=== PATIENT | female | born 1975 | race Caucasian/White ===

== ENCOUNTER 2017-04-08 14:45 | Emergency (ER) | payer OTHER ==
[2017-04-08 14:56] VITALS: BMI 21.9
[2017-04-08] MEDS ORDERED: ALBUTEROL SO4 0.083% IH SOL 2.5 MG/3 ML VIAL.NEB. NEB ONE (15:42)
[2017-04-08] MEDS ORDERED: IPRATROPIUM BR 0.02% 0.5 MG/2.5 ML VIAL.NEB. NEB ONE (15:42)
[2017-04-08] MEDS ORDERED: predniSONE 20 MG TABLET (UD) PO ONE (15:42)
--- NOTE | 2017-04-08 15:53 | PDOC ---
History of Present Illness - General Chief Complaint: Pain Stated Complaint: epigastric ABD PAIN Time Seen by Provider: 04/08/17 15:38 History Source: Patient Exam Limitations: No Limitations - History of Present Illness Initial Comments: This is a 41 yo female with h/o GERD, x3, and right inguinal herniorrhaphy who presents c/o 8/10 non-radiating burning epigastric pain worsening for the past 3 days. She took Tums for the symptoms last night with partial relief. She notes feeling like there is a small ball in her upper stomach (points just inferior and deep to the xyphoid process). She additionally has had nausea and decreased appetite, but no vomiting, diarrhea, constipation, black or bloody stool, vaginal bleeding or discharge, headache, dizziness, fever, chills, or other symptoms. Her last menstrual period was 2-3 weeks ago and she doesn't believe that she may be . She has previously had similar pain (most recently a year ago) and was worked up by gastoenterology for chronic stomach pain, nausea, and malnutrition. Past History - Past Medical History Allergies/Adverse Reactions: Allergies Allergy/AdvReac Type Severity Reaction Status Date / Time No Known Allergies Allergy Verified 04/08/17 14:51 Home Medications: Ambulatory Orders Omeprazole 20 mg PO DAILY 04/07/16 Ondansetron [Zofran Odt -] 4 mg SL BID #14 od.tablet 04/08/17 Pantoprazole Sodium [Protonix] 40 mg PO DAILY #20 tablet. 04/08/17 Anemia: No Asthma: No Cancer: No Cardiac Disorders: No CVA: No COPD: No CHF: No Dementia: No Diabetes: No GI Disorders: No Disorders: No HTN: No Hypercholesterolemia: No Liver Disease: No Suicide Attempt (Hx): No Seizures: No Thyroid Disease: No - Surgical History Abdominal Surgery: Yes (rt ing HERNIA) Appendectomy: No Cardiac Surgery: No Cholecystectomy: No Lung Surgery: No Neurologic Surgery: No Orthopedic Surgery: No - Reproductive History (#): 4 Para: 3 Spontaneous : 1 - Immunization History Immunization Up to Date: No - Psycho/Social/Smoking Cessation Hx Anxiety: Yes Suicidal Ideation: No Smoking Status: No Smoking History: Never smoked Have you smoked in the past 12 months: No Number of Cigarettes Smoked Daily: 0 Information on smoking cessation initiated: No Hx Alcohol Use: No Drug/Substance Use Hx: No Substance Use Type: None Hx Substance Use Treatment: No Review of Systems - Review of Systems Able to Perform ROS?: Yes Constitutional: Yes: Loss of Appetite. No: Chills, Fever, Unexplained wgt Loss HEENTM: No: Nose Congestion, Throat Pain Respiratory: No: Cough, Shortness of Breath Cardiac (ROS): No: Chest Pain, Palpitations ABD/GI: Yes: Nausea, Other (upper abdominal pain). No: Constipated, Diarrhea, Rectal Bleeding, Vomiting : No: Burning, Dysuria, Discharge, Flank Pain, Hematuria Musculoskeletal: No: Back Pain, Neck Pain Integumentary: No: Bruising, Rash Neurological: No: Headache, Numbness, Tingling, Weakness, Dizziness Endocrine: No: Unexplained Weight Gain, Unexplained Weight Loss *Physical Exam - Vital Signs Last Vital Signs Temp Pulse Resp BP Pulse Ox 98.0 F 86 18 118/91 100 04/08/17 14:52 04/08/17 14:52 04/08/17 14:52 04/08/17 14:52 04/08/17 14:52 - Physical Exam General Appearance: Yes: Nourished, Appropriately Dressed, Thin, Other (laying in hospital bed with light out with student success coach at bedside, appears mildly uncomfortable, answering questions appropriately, [place]an-speaking only). No: Apparent Distress HEENT: positive: EOMI, Normal Voice, Hearing Grossly Normal. negative: Scleral Icterus (R), Scleral Icterus (L), Nasal Congestion Neck: positive: Trachea midline, Supple. negative: Tender, Rigid Respiratory/Chest: positive: Lungs Clear, Normal Breath Sounds. negative: Respiratory Distress, Crackles, Rhonchi, Stridor, Wheezing Cardiovascular: positive: Regular Rhythm, Regular Rate. negative: Murmur Gastrointestinal/Abdominal: positive: Normal Bowel Sounds, Tender (mild suprapubic and mild epigastric tenderness to palpation, no lumps felt in the area where the patient points in the epigastrium, normoactive bowel sounds), Soft. negative: Organomegaly, Pulsatile Mass, Guarding Musculoskeletal: positive: Normal Inspection. negative: CVA Tenderness, Decreased Range of Motion, Vertebral Tenderness Extremity: positive: Normal Capillary Refill, Normal Inspection, Normal Range of Motion. negative: Tender, Cyanosis Integumentary: positive: Normal Color, Dry, Warm. 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 A 0.4 cm polyp is noted along the posterior gallbladder wall. The remainder of the gallbladder demonstrates no discrete abnormality. No pericholecystic fluid is seen. The common bile duct diameter appears within normal limits measuring 0.4 cm. No gross intraductal calculus is identified. The liver, spleen, kidneys and partially visualized pancreas demonstrate no sonographic abnormality. No free intraperitoneal fluid is noted. The infrarenal aorta is partially obscured due to overlapping bowel gas. No obvious aortic aneurysm is seen. Impression: No sonographic evidence of acute pathology is identified. There is no evidence of cholelithiasis. A 0.4 cm gallbladder polyp is noted which was not definitely present at the time of a previous ultrasound study of 07/11/2013. Correlation with 3 month follow-up sonography is suggested to evaluate stability. No biliary tract dilatation is seen. Reported By: Adolfo Lucero MD 04/08/17 4315 Medical Decision Making - Medical Decision Making 41 yof with vague prior GI issues p/w epigastric burning pain and mild suprapubic pain, nausea. On exam she is thin, a bit pale, mild epigastric and suprapubic ttp. DDX: GERD, PUD, pancreatitis, renal stone, UTI +- pyelonephritis Ordered is CBCD, CMP, Mg, Phos, lipase, UA with cx, NS, Maalox, and Pepcid. 04/08/17 17:46 Patient is female, [age], fertile, but no overweight; will order RUQ ultrasound r/o cholecystitis. CBCD, CMP, lipase, UA negative. 04/08/17 19:36 US limited shows no e/o cholecystitis, hydronephrosis, or other obvious cause for the patient's pain. Her pain has essentially resolved with medications given in the ED. She is appropriate for OP management (states has current GI doctor). She will make an appointment with GI tomorrow morning. Rx sent for Protonix and Zofran. *DC/Admit/Observation/Transfer Diagnosis at time of Disposition: Abdominal pain Qualifiers: Abdominal location: epigastric Qualified Code(s): R10.13 - Epigastric pain - Discharge Dispostion Disposition: HOME Condition at time of disposition: Stable Admit: No - Prescriptions Prescriptions: Pantoprazole Sodium [Protonix] 40 mg PO DAILY #20 tablet. Ondansetron [Zofran Odt -] 4 mg SL BID #14 od.tablet - Referrals Referrals: Lenora Avila MD [Primary Care Provider] - - Patient Instructions Additional Instructions: You were seen today in the ED for abdominal pain. We did blood work and a urine analysis which were normal. We also did an ultrasound of your gallbladder and abdomen, which did not show any obvious cause for the pain. Please follow up with your regular quality compliance manager as soon as possible. Call them tomorrow morning to make an appointment. Take the Protonix as scheduled, and please take the Zofran ODT only as you need it for nausea according to the label instructions. (The Zofran or ondansetron is a pill that you need to dissolve under your tongue without swallowing it like a normal pill.) Return to the ED for any new or worsening symptoms like worsened pain, bloody or black diarrhea, fever, or other symptoms.
[2017-04-08] MEDS ORDERED: FAMOTIDINE 20 MG/50 ML IVPB 50 ML IVPB ONE ×2 (16:05→16:29)
[2017-04-08] MEDS ORDERED: MAG HYDROX/AL HYDROX/SIMETH 30 ML UNIT-DOSE CUP PO ONE (16:05)
[2017-04-08] MEDS ORDERED: SODIUM CHLORIDE 1,000 ML IV STA (16:06)
[2017-04-08] MEDS ORDERED: MAG HYDROX/AL HYDROX/SIMETH 30 ML UNIT-DOSE CUP ONE (16:28)
[2017-04-08 16:31] LABS: BASOPHIL 0.6 % (0-2.0); EOSINOPHIL 0.3 % (0-4.5); MCH 31.2 pg (25.7-33.7); MCHC 34.5 g/dl (32.0-36.0); MEAN CELL VOLUME 90.4 fl (80-96); MEAN PLT VOLUME 8.2 fl (7.5-11.1); PLATELET COUNT 254 K/MM3 (134-434); WHITE BLOOD COUNT 9.5 K/mm3 (4.0-10.0)
[2017-04-08 16:42] LABS: URINE APPEARANCE CLEAR; URINE BILIRUBIN NEGATIVE (NEGATIVE); URINE BLOOD NEGATIVE (NEGATIVE); URINE COLOR LTYELLOW; URINE GLUCOSE (UA) NEGATIVE (NEGATIVE); URINE KETONE NEGATIVE (NEGATIVE); URINE NITRITE NEGATIVE (NEGATIVE); URINE PROTEIN NEGATIVE (NEGATIVE); URINE UROBILINOGEN NEGATIVE mg/dL (0.2-1.0)
[2017-04-08 17:02] LABS: ALBUMIN 3.8 g/dl (3.4-5.0); ANION GAP 8 (8-16); BILIRUBIN,TOTAL 0.4 mg/dL (0.2-1.0); CO2 28 mmol/L (21-32); CREATININE 0.4 mg/dL (0.55-1.02); GLUCOSE,RANDOM 98 mg/dL (74-106); MAGNESIUM 2.3 mg/dL (1.8-2.4); PHOSPHOROUS 3.8 mg/dL (2.5-4.9); SGOT/AST 14 U/L (15-37); SGPT/ALT 17 U/L (12-78); TOT PROT 7.4 g/dl (6.4-8.2)
[2017-04-08 17:03] LABS: ALK PHOS 72 U/L (45-117)
--- NOTE | 2017-04-08 19:04 | PDOC ---
Attending Attestation - Resident Resident Name: MarthaAry - ED Attending Attestation I have performed the following: I have examined & evaluated the patient, The case was reviewed & discussed with the resident, I agree w/resident's findings & plan, Exceptions are as noted - HPI HPI: 04/08/17 19:02 41 yo p/w epigsatric pain.Nausea but no active vomiting and no fever. Has been seen by Dr Watkins in past years for gastroparesis - Physicial Exam PE: 04/08/17 19:28 Slender 41-year-old female presents with epigastric pain HEENT within normal limits. Neck supple Lungs clear to auscultation bilaterally CVS regular rate and rhythm S1, S2 Abdomen there is mild epigastric tenderness, no guarding, no rebound Neuro alert, oriented 3, ambulatory, no gross focal neural deficits - Medical Decision Making 04/08/17 19:30 Ultrasound of the patient's abdomen does not show any evidence of cholecystitis. She does not have a fever. Labs reviewed, and there is no significant abnormalities. Patient has a history of gastroparesis, chronic abdominal pain and will follow- up with her drapery cutter
[2017-04-08 20:32] VITALS: BP 118/84; PULSE 84; TEMP 98.4
== END 2017-04-08 20:32 | disposition home or self-care (01) ==
LOC: JER 14:45
PROC: 3E033GC Introduction of Other Therapeutic Substance into Peripheral Vein, Percutaneous Approach (ICD-10-PCS; principal; 2017-04-08)
DX: R10.13 Epigastric pain (principal)
CPT/HCPCS: 36415; 76700-TC; 80053; 81003; 83690; 83735; 84100; 84703; 85025; 87086; 96365; 99282-25

== ENCOUNTER 2017-08-23 12:15 | Emergency (ER) | payer OTHER ==
[2017-08-23 12:27] VITALS: BP 116/75; PULSE 127; TEMP 99.2; BMI 20.7
[2017-08-23] MEDS ORDERED: ACETAMINOPHEN 325 MG TABLET (FP) PO ONE (13:01)
[2017-08-23] MEDS ORDERED: SODIUM CHLORIDE 1,000 ML IV STA (13:01)
--- NOTE | 2017-08-23 13:02 | PDOC ---
History of Present Illness - General Chief Complaint: Respiratory Stated Complaint: FEVER History Source: Patient Exam Limitations: No Limitations - History of Present Illness Initial Comments: 08/23/17 13:37 This 41-year-old female presents here to the emergency room with the complaint of a cough, fever, chills. She was seen by her doctor yesterday and found to be with positive flu, positive bronchitis. She was placed on the following medications by her doctor, Tamiflu, prednisone, Zofran, Zithromax, cough suppressant. She stated she started taking it yesterday and again this morning however she still feels extremely dehydrated. She is unable to take any fluids in. She has not eaten anything either. Her son is with her translating. At this time she has no fever. NKA No past medical history, social habits, or past surgical history Past History - Past Medical History Allergies/Adverse Reactions: Allergies Allergy/AdvReac Type Severity Reaction Status Date / Time No Known Allergies Allergy Verified 08/23/17 12:26 Anemia: No Asthma: No Cancer: No Cardiac Disorders: No CVA: No COPD: No CHF: No Dementia: No Diabetes: No GI Disorders: No Disorders: No HTN: No Hypercholesterolemia: No Liver Disease: No Seizures: No Thyroid Disease: No - Surgical History Abdominal Surgery: Yes (rt ing HERNIA) Appendectomy: No Cardiac Surgery: No Cholecystectomy: No Lung Surgery: No Neurologic Surgery: No Orthopedic Surgery: No - Reproductive History (#): 4 Para: 3 Spontaneous : 1 - Immunization History Immunization Up to Date: No - Suicide/Smoking/Psychosocial Hx Smoking Status: No Smoking History: Never smoked Have you smoked in the past 12 months: No Number of Cigarettes Smoked Daily: 0 Hx Alcohol Use: No Drug/Substance Use Hx: No Substance Use Type: None Hx Substance Use Treatment: No Review of Systems - Review of Systems Able to Perform ROS?: Yes Comments:: 08/23/17 13:39 General statement: Does not feel well Hematology: neg history of bleeding/blood thinners Skin: Neg for lesions, rash, bruising. HEENT: Neg symptoms other than nasal congestion Respiratory: Neg SOB or difficulty in breathing positive cough with pain to the chest when coughing Cardiac: Neg chest pain GI: Neg pain, n/v : Neg problems on voiding MS: Neg for joint pain/stiffness, no edema Neuro: Neg for LOC, weakness, Endocrine: Neg for excess thirst/hunger, cold/heat intolerance, excess sweating Allergies: Neg for allergies *Physical Exam - Vital Signs Last Vital Signs Temp Pulse Resp BP Pulse Ox 99.2 F 127 H 20 116/75 99 08/23/17 12:24 08/23/17 12:24 08/23/17 12:24 08/23/17 12:24 08/23/17 12:24 - Physical Exam Comments: 08/23/17 13:39 General Appearance: This ill-appearing female V/S: hemodynamically stable, afebrile Skin: WNL of pt's skin color, no signs of pallor, mottling, cyanosis Head:symmetrical Eyes: EOM's intact, PERRLA Ears: denies pain Nose: patent with some turbinate congestion Throat: lips, teeth, gums, tongue, buccal mucos pink and moist Lungs: Chest symmetry equal. Cap refill <3 seconds. Lung sounds diminished at bases but clear throughout Cardiac: PMI at R 4MCL space, pos S1 and S2, regular rate. Abdomen: Soft, round, nontender : Not observed Muscularskeletal: Gait steady, ambulated in to ER, no edema +PMS Neuro: AAOx3, cognitively intact, speech clear and appropriate. Medical Decision Making - Medical Decision Making 08/23/17 13:40 Patient initially was seen and examined with son present. Patient has received all of medications that I can offer for her with her complaints and was only seen yesterday by her primary physician. At this time I'm offering her a bag of IV fluids for hydration as well as some Tylenol for body aches. She is receiving this without any complaints. 08/23/17 14:14 Patient is rehydrated and now being discharged to home to complete her antibiotics. *DC/Admit/Observation/Transfer Diagnosis at time of Disposition: Influenza, Dehydration - Discharge Dispostion Disposition: HOME Condition at time of disposition: Stable Admit: No - Referrals Referrals: Ana Bauer [Primary Care Provider] - - Patient Instructions Printed Discharge Instructions: DI for Dehydration -- Adult Additional Instructions: Discharge instructions 1. Please follow up with your primary physician within the next few days and explain that you have been seen here in the Emergency Room or dehydration. 2. If you experience any worsening of symptoms, please return to the ER 3. Rest 4. Drink plenty of water and other fluids 5. Complete all of the medications you received by your MD as prescribed - Post Discharge Activity
[2017-08-23] MEDS ORDERED: ACETAMINOPHEN 325 MG TABLET (FP) ONE (13:11)
== END 2017-08-23 14:20 | disposition home or self-care (01) ==
LOC: JERFT 12:15
PROC: 3E0337Z Introduction of Electrolytic and Water Balance Substance into Peripheral Vein, Percutaneous Approach (ICD-10-PCS; principal; 2017-08-23)
DX: J10.1 Influenza due to other identified influenza virus with other respiratory manifestations (principal); E86.0 Dehydration
CPT/HCPCS: 96360; 99281-25

== ENCOUNTER 2019-05-07 19:40 | Emergency (ER) | payer OTHER ==
--- NOTE | 2019-05-07 20:06 | PDOC ---
Rapid Medical Evaluation Chief Complaint: Pain Time Seen by Provider: 05/07/19 20:05 Medical Evaluation: Allergies Allergy/AdvReac Type Severity Reaction Status Date / Time No Known Allergies Allergy Verified 05/07/19 20:04 05/07/19 20:05 Pt c/o: urinary s/s , no recent uti, no discharge, no dm Pt on brief exam: vss Pt ordered for: ua, ucx, uhcg Pt to proceed to the ED Discharge Disposition - Diagnosis Urinary pain - Referrals - Patient Instructions - Post Discharge Activity
[2019-05-07 20:07] VITALS: BP 124/64; PULSE 75; TEMP 98.2; BMI 21.9
[2019-05-07 22:33] LABS: PH,URINE 5.5 (5.0-8.0); URINE APPEARANCE CLOUDY; URINE BILIRUBIN NEGATIVE (NEGATIVE); URINE COLOR YELLOW; URINE GLUCOSE (UA) NEGATIVE (NEGATIVE); URINE KETONE NEGATIVE (NEGATIVE); URINE LEUK ESTERASE NEGATIVE (NEGATIVE); URINE NITRITE NEGATIVE (NEGATIVE); URINE PROTEIN NEGATIVE (NEGATIVE); URINE UROBILINOGEN 0.2 mg/dL (0.2-1.0)
--- NOTE | 2019-05-07 23:38 | PDOC ---
History of Present Illness - General Chief Complaint: Pain Stated Complaint: PAIN Time Seen by Provider: 05/07/19 20:05 - History of Present Illness Initial Comments: The pt is a 43F w/ a no reported PMH who presents for evaluation of 3 days of RLQ/suprapubic abdominal pain that is achy, waxing/waning, associated with urinary frequency and discomfort as well as nausea, and not alleviated by anything she can identify. She denies fevers/chills, chest pain, trouble breathing, diarrhea, blood in her urine or stool, or changes in sensation. She has not tried taking anything for her pain. 05/08/19 00:30 Past History - Past Medical History Allergies/Adverse Reactions: Allergies Allergy/AdvReac Type Severity Reaction Status Date / Time No Known Allergies Allergy Verified 05/07/19 20:04 Home Medications: Ambulatory Orders NK [No Known Home Medication] 05/07/19 Anemia: No Asthma: No Cancer: No Cardiac Disorders: No CVA: No COPD: No CHF: No Dementia: No Diabetes: No GI Disorders: No Disorders: No HTN: No Hypercholesterolemia: No Liver Disease: No Seizures: No Thyroid Disease: No - Surgical History Abdominal Surgery: Yes (rt ing HERNIA) Appendectomy: No Cardiac Surgery: No Cholecystectomy: No Lung Surgery: No Neurologic Surgery: No Orthopedic Surgery: No - Reproductive History (#): 4 Para: 3 Spontaneous : 1 - Immunization History Immunization Up to Date: No - Psycho Social/Smoking Cessation Hx Smoking Status: No Smoking History: Never smoked Have you smoked in the past 12 months: No Number of Cigarettes Smoked Daily: 0 Information on smoking cessation initiated: No Hx Alcohol Use: No Drug/Substance Use Hx: No Substance Use Type: None Hx Substance Use Treatment: No Review of Systems - Review of Systems Able to Perform ROS?: Yes Comments:: GENERAL/CONSTITUTIONAL: No fever or chills. No weakness HEAD, EYES, EARS, NOSE AND THROAT: No change in vision. No change in hearing. No sore throat CARDIOVASCULAR: No chest pain or shortness of breath RESPIRATORY: Denies cough, hemoptysis GASTROINTESTINAL: No nausea, vomiting, diarrhea or constipation GENITOURINARY: +dysuria/frequency MUSCULOSKELETAL: No joint or muscle swelling or pain. No neck or back pain SKIN: No rash NEUROLOGIC: No headache, vertigo, loss of consciousness, or change in strength/ sensation ENDOCRINE: No increased thirst. No abnormal weight change HEMATOLOGIC/LYMPHATIC: No anemia, easy bleeding, or history of blood clots ALLERGIC/IMMUNOLOGIC: No hives or skin allergy 05/07/19 23:33 Is the patient limited Welsh proficient: No *Physical Exam - Vital Signs Last Vital Signs Temp Pulse Resp BP Pulse Ox 98.2 F 75 17 124/64 99 05/07/19 20:04 05/07/19 20:04 05/07/19 20:04 05/07/19 20:04 05/07/19 20:04 - Physical Exam Comments: GENERAL: Awake, alert, and oriented to person/place/time, in no acute distress HEAD: No signs of trauma, normocephalic, atraumatic EYES: PERRLA, EOMI, sclera anicteric, conjunctiva clear ENT: Hearing grossly normal, nares patent, oropharynx clear without exudates. Moist mucosa LUNGS: No distress, speaks in full sentences, clear to auscultation bilaterally HEART: Regular rate and rhythm, normal S1 and S2, no murmurs appreciated, peripheral pulses normal and equal bilaterally ABDOMEN: Soft, RLQ/R inguinal TTP w/o rebound or guarding, normoactive bowel sounds PELVIC: normal white vaginal discharge, no blood, no CMT, R adenexal tenderness w/o mass EXTREMITIES: Normal inspection, Normal range of motion, no edema. No clubbing or cyanosis NEUROLOGICAL: Cranial nerves II through XII grossly intact. Normal speech, no focal sensorimotor deficits SKIN: Warm, Dry 05/08/19 01:26 ED Treatment Course - LABORATORY CBC & Chemistry Diagram: 05/08/19 00:30 05/08/19 00:30 - ADDITIONAL ORDERS Additional order review: Laboratory Results 05/07/19 05/07/19 10:15 10:15 Urine Color Yellow Urine Appearance Cloudy Urine pH 5.5 D Ur Specific [place] 1.030 Urine Protein Negative Urine Glucose (UA) Negative Urine Ketones Negative Urine Blood Negative Urine Nitrite Negative Urine Bilirubin Negative Urine Urobilinogen 0.2 Ur Leukocyte Esterase Negative Urine HCG, Qual Negative Medical Decision Making - Medical Decision Making The pt is a 43F w/ a no reported PMH who presents for evaluation of 3 days of RLQ/suprapubic abdominal pain w/ associated urinary frequency and mild dysuria ED Course Labs sent UA TVUS Tylenol for pain UA w/o evidence of UTI Upreg neg No leukocytosis No anemia Lytes unremarkable LFTs wnl No REGULO 05/08/19 01:27 TVUS w/ 1.5cm R ovarian cyst Pt feels improved at this time Plan for D/C w/ OBGYN f/u Discharge instructions and return precautions given Pt in agreement and verbalized understanding Dispo: home 05/08/19 01:56 Discharge - Discharge Information Problems reviewed: Yes Clinical Impression/Diagnosis: Urinary pain Ovarian cyst Qualifiers: Laterality: right Qualified Code(s): N83.201 - Unspecified ovarian cyst, right side Condition: Stable Disposition: HOME - Admission No - Follow up/Referral Referrals: Ross Gaffney MD [Primary Care Provider] - Harrison Tuttle MD [Staff Physician] - Gem Thao DO [Staff Physician] - - Patient Discharge Instructions Patient Printed Discharge Instructions: DI for Ovarian Cyst Additional Instructions: You were seen in the Emergency Department for evaluation of abdominal pain. Your ultrasound was notable for a right ovarian cyst which is the likely cause of your pain. For pain you make take Tylenol 650mg every six hours as needed. Review the handout provided at discharge. Follow up with your OBGYN and primary care provider. Return to the Emergency Department if you develop fevers/chills, chest pain, trouble breathing, blood in your urine, worsening pain, or any new/ concerning symptoms. Print Language: IRISH - Post Discharge Activity
[2019-05-07] MEDS ORDERED: ACETAMINOPHEN 325 MG TABLET (FP) PO ONE (23:56)
--- NOTE | 2019-05-08 00:12 | PDOC ---
Attending Attestation - Resident Resident Name: Gilles Cedillo - ED Attending Attestation I have performed the following: I have examined & evaluated the patient, The case was reviewed & discussed with the resident, I agree w/resident's findings & plan, Exceptions are as noted - HPI HPI: 05/08/19 02:04 Ms. Dunbar is a 43 yo F, no significant past medical history who presents to the ER for evaluation of 3 days of RLQ/suprapubic abdominal pain that is achy, waxing/waning, associated with urinary frequency and discomfort as well as nausea. No alleviating factors. No fevers or chills No blood in her urine or stool She has not tried taking anything for her pain. - Physicial Exam PE: 05/08/19 00:12 GENERAL: The patient is in no acute distress. ENT: Moist mucous membranes. NECK: Normal range of motion, supple LUNGS: Breath sounds equal, clear to auscultation bilaterally. No wheezes, and no crackles. HEART:Regular rate and rhythm, normal S1 and S2 without murmur, rub or gallop. ABDOMEN: Soft, right lower pelvic tenderness to palpation PELVIC: examination per Dr. Cedillo EXTREMITIES: Normal range of motion, no edema. NEUROLOGICAL: Cranial nerves II through XII grossly intact. Normal speech. No focal neurological deficits. SKIN: Warm, Dry, normal turgor, no rashes or lesions noted. 05/08/19 02:34 - Medical Decision Making 05/08/19 02:04 Laboratory Tests 05/07/19 05/07/19 05/08/19 10:15 10:15 00:30 WBC 8.4 Hgb 12.8 Hct 37.7 Plt Count 268 BUN Creatinine Urine Blood Negative Urine Nitrite Negative Ur Leukocyte Esterase Negative Urine HCG, Qual Negative 05/08/19 00:30 WBC Hgb Hct Plt Count BUN 16.2 Creatinine 0.5 L Urine Blood Urine Nitrite Ur Leukocyte Esterase Urine HCG, Qual 05/08/19 02:21 US: EXAM: TRANSVAGINAL ULTRASOUND US and pelvic duplex HISTORY: Evaluate for cyst COMPARISON: None. FINDINGS: Endovaginal pelvic ultrasound:Uterus is retroverted and measures 6.8centimeters in length. The endometrium is 12millimeters in thickness. There are no fibroids. The right ovary measures 2.1centimeters in length, contains a 1.5 cm cyst and demonstrates normal flow. Left ovary is nonvisualized. There is no significant free fluid. Pelvic duplex: There is normal arterial and venous flow in the right ovary. IMPRESSION: 1.5 cm right ovarian cyst without torsion or free fluid. Unlikely kidney stone given no hematuria, no flank pain Unlikely appendicitis given chronicity of symptoms, no systemic signs of illness and no GI symptoms Upon re assessment: Pt pain improved Will plan to discharge to home Follow up witn copy messenger Noah for pain
[2019-05-08] MEDS ORDERED: ACETAMINOPHEN 325 MG TABLET (FP) ONE (00:20)
[2019-05-08 00:56] LABS: BASO % 0.3 % (0-2.0); EOS % 1.1 % (0-4.5); HEMATOCRIT 37.7 % (32.4-45.2); HEMOGLOBIN 12.8 GM/dL (10.7-15.3); LYMPH % 47.3 % (8-40); MCH 31.2 pg (25.7-33.7); MCHC 33.9 g/dl (32.0-36.0); MEAN CELL VOLUME 91.9 fl (80-96); MEAN PLT VOLUME 8.4 fl (7.5-11.1); MONO % 6.7 % (3.8-10.2); NEUT % 44.6 % (42.8-82.8); PLATELET COUNT 268 K/MM3 (134-434); RDW 12.4 % (11.6-15.6); WHITE BLOOD COUNT 8.4 K/mm3 (4.0-10.0)
[2019-05-08 01:21] LABS: ALBUMIN 3.8 g/dl (3.4-5.0); BILIRUBIN,TOTAL 0.5 mg/dL (0.2-1); BLOOD UREA NITROGEN 16.2 mg/dL (7-18); CALCIUM 8.9 mg/dL (8.5-10.1); CREATININE 0.5 mg/dL (0.55-1.3); POTASSIUM 4.1 mmol/L (3.5-5.1)
== END 2019-05-08 02:14 | disposition home or self-care (01) ==
LOC: JER 19:40
DX: N83.201 Unspecified ovarian cyst, right side (principal)
CPT/HCPCS: 36415; 76830-TC; 80053; 81003; 84703; 85025; 87086; 87491; 87591; 99283-25

== ENCOUNTER 2020-05-09 08:18 | Emergency (ER) | payer OTHER ==
[2020-05-09 08:26] VITALS: TEMP 97.5; BMI 21.4
--- NOTE | 2020-05-09 08:32 | PDOC ---
History of Present Illness - General Chief Complaint: Allergic Reaction Stated Complaint: ALLERGIC REACTION Time Seen by Provider: 05/09/20 08:31 History Source: Patient, Change Management Specialist Used Exam Limitations: No Limitations - History of Present Illness Initial Comments: 05/09/20 08:54 44 y.o. South Korean speaking F PMHx RA presenting due to an allergic reaction. Patient states she took her first dose of Rifampin 300mg this morning which was prescribed due to her susceptibility to tuberculosis and for her RA. She began to experience headache, myalagis, itching, nausea and sob. Patient states the SOB has not worsened in severity but is still experiancing the muscle aches, nausea and diffuse itching. Nurses Supervisor # [id number] Specialist: Dr. Denney PMHx: RA Meds: In Chart Is this a multiple visit Asthma Patient?: No Timing/Duration: 1-3 hours Severity: moderate Past History - Medical History Allergies/Adverse Reactions: Allergies Allergy/AdvReac Type Severity Reaction Status Date / Time No Known Allergies Allergy Verified 05/09/20 08:20 Home Medications: Ambulatory Orders Methotrexate Sodium [Methotrexate] 2.5 mg PO WEEKLY 05/09/20 Prednisone [Prednisone 50 MG TABLETS] 50 mg PO ONCE #4 tablet 05/09/20 Rifampin 300 mg PO DAILY 05/09/20 Anemia: No Asthma: No Cancer: No Cardiac Disorders: No CVA: No COPD: No CHF: No Dementia: No Diabetes: No GI Disorders: No Disorders: No HTN: No Hypercholesterolemia: No Liver Disease: No Seizures: No Thyroid Disease: No - Surgical History Abdominal Surgery: Yes (rt ing HERNIA) Appendectomy: No Cardiac Surgery: No Cholecystectomy: No Lung Surgery: No Neurologic Surgery: No Orthopedic Surgery: No - Reproductive History Is Patient Now?: No (#): 4 Para: 3 Spontaneous : 1 - Immunization History Immunization Up to Date: No - Psycho-Social/Smoking History Smoking Status: No Smoking History: Never smoked Have you smoked in the past 12 months: No Number of Cigarettes Smoked Daily: 0 - Substance Abuse Hx (Audit-C & DAST Scrn) How often the patient has a drink containing alcohol: Never Score: In Men: 4 or > Positive; In Women: 3 or > Positive: 0 Screen Result (Pos requires Nsg. Audit-10AR): Negative Review of Systems - Review of Systems Able to Perform ROS?: Yes Is the patient limited Syriac proficient: Yes Constitutional: No: Chills, Fever HEENTM: No: Blurred Vision, Double Vision Respiratory: Yes: Shortness of Breath. No: Cough, Stridor, Wheezing Cardiac (ROS): No: Chest Pain, Lightheadedness ABD/GI: Yes: Nausea. No: Constipated, Diarrhea, Vomiting : No: Burning, Dysuria Musculoskeletal: Yes: Muscle Pain. No: Muscle Weakness Integumentary: Yes: Erythema, Pruritus, Rash. No: Bruising, Flushing Neurological: Yes: Headache. No: Numbness, Dizziness Hematologic/Lymphatic: No: Blood Clots, Easy Bruising *Physical Exam - Vital Signs Last Vital Signs Temp Pulse Resp BP Pulse Ox 97.5 F L 102 H 18 149/82 100 05/09/20 08:21 05/09/20 08:21 05/09/20 08:21 05/09/20 08:21 05/09/20 08:21 - Physical Exam General Appearance: Yes: Nourished, Appropriately Dressed. No: Apparent Distress HEENT: positive: Normal Voice, Pharynx Normal. negative: Muffled/Hoarse voice, Pharyngeal Erythema Respiratory/Chest: positive: Lungs Clear, Normal Breath Sounds. negative: Chest Tender, Respiratory Distress, Accessory Muscle Use, Crackles, Rales, Stridor, Wheezing Cardiovascular: positive: Regular Rhythm, Regular Rate. negative: Edema, JVD, Murmur Gastrointestinal/Abdominal: positive: Normal Bowel Sounds, Flat, Soft. negative: Tender Musculoskeletal: positive: Normal Inspection. negative: CVA Tenderness Extremity: positive: Normal Inspection. negative: Tender, Swelling, Calf Tenderness Integumentary: positive: Normal Color, Dry, Warm, Rash. negative: Hives, Swelling Neurologic: positive: Fully Oriented, Alert, Normal Mood/Affect, Normal Response Medical Decision Making - Medical Decision Making 05/09/20 09:01 44 y.o. South Korean speaking F PMHx RA presenting due to an allergic reaction. DDx: Allergic reaction (secondary to medication) Mallampati: 3/4, no impending respiratory compromise at this time, no indication for intubation. Given 50mg benadryl, 4mg zofran, 50mg Prednisone Dispo: Home 05/09/20 09:03 Discharge - Discharge Information Problems reviewed: Yes Clinical Impression/Diagnosis: Allergic reaction caused by a drug Qualifiers: Encounter type: initial encounter Qualified Code(s): T78.40XA - Allergy, unspecified, initial encounter Condition: Improved Disposition: HOME - Admission No - Additional Discharge Information Prescriptions: Prednisone [Prednisone 50 MG TABLETS] 50 mg PO ONCE #4 tablet - Follow up/Referral - Patient Discharge Instructions Patient Printed Discharge Instructions: DI for General Allergic Reactions, DI for Adverse Drug Reaction -- Allergic Additional Instructions: Recibi tratamiento por steven reaccin alrgica en el departamento de emergencias y sherin sntomas mejoraron Contine tomando prednisona diariamente y complete el curso Si tiene picazn o sarpullido, tome benadryl segn sea necesario. Siga las instrucciones del frasco para conocer las dosis. No conduzca ni maneje maquinaria mientras est tomando benadryl, ya que puede causarle sueo. Miles un seguimiento con hernandez mdico de atencin primaria dentro de 1 semana Regrese al departamento de emergencias si tiene algn sntoma nuevo, que empeora o que le preocupa. You were treated for an allergic reaction in the emergency department and your symptoms improved Continue to take the prednisone daily and complete the course If you have itching or a rash, take benadryl as needed. Follow the instructions on the bottle for dosages. Do not drive or operate machinery while taking benadryl as it can make you sleepy. Follow up with your primary doctor within 1 week Return to the emergency department if you have any new, worsening, or concerning symptoms - Post Discharge Activity Vital Signs - Vital Signs Vital signs refused: No Pulse Rate: 62 Respiratory Rate: 14 Blood Pressure: 111/63 BP Location: Right Arm Blood Pressure position: Supine
--- OUTSIDE RECORDS SUMMARY | 2020-05-09 08:40 | XMS ---
:1975 Author Organization [facility] Support Name Relationship Address Phone UE Unavailable Unavailable Unavailable TAMMIE LAM [address] [place] [address] TAMMIE LAM Unavailable [address] [place] [address] Re-disclosure Warning The records that you are about to access may contain information from federally- assisted alcohol or drug abuse programs. If such information is present, then the following federally mandated warning applies: This information has been disclosed to you from records protected by federal confidentiality rules (42 CFR part 2). The federal rules prohibit you from making any further disclosure of this information unless further disclosure is expressly permitted by the written consent of the person to whom it pertains or as otherwise permitted by 42 CFR part 2. A general authorization for the release of medical or other information is NOT sufficient for this purpose. The Federal rules restrict any use of the information to criminally investigate or prosecute any alcohol or drug abuse patient.The records that you are about to access may contain highly sensitive health information, the redisclosure of which is protected by Article 27-F of the [facility] Public Health law. If you continue you may haveaccess to information: Regarding HIV / AIDS; Provided by facilities licensed or operated by the [facility] Office of Mental Health; or Provided by the [facility] Office for People With Developmental Disabilities. If such information is present, then the following [facility] mandated warning applies: This information has been disclosed to you from confidential records which are protected by state law. State law prohibits you from making any further disclosure of this information without the specific written consent of the person to whom it pertains, or as otherwise permitted by law. Any unauthorized further disclosure in violation of state law may result in a fine or retirement sentence or both. A general authorization for the release of medical or other information is NOT sufficient authorization for further disclosure. Encounters Encounter Providers Location Date Indications Data Source(s ) Outpatient [facility] 04/05/2019 eCW3 ([facility] 12:00:00 AM Health Care) EDT - 04/05/2019 12:00:00 AM EDT Medications Medication Brand Start Product Dose Route Administrative Pharmacy [facility] Indications Reaction Description Data Name Date Form Instructions Instructions Source(s) Nebulizer - Nebuli 11/21/ active Nebuliz er - eCW3 zer - 2019 (Yee 12:00: [facility] 00 AM Health EDT Care) Meclizine Mecliz .0 active Meclizine eCW3 Hydrochlori ine 2019 {tabl HCl 25 MG (H udson de 25 MG HCl 25 12:00: et_as [facility] Chewable MG 00 AM _need Health Tablet EST ed} Care) Meclizine HCl 25 MG Hydrocortis Neomyc 4.0 suspend Neomyc in-Jose eCW3 one 10 in-Jose 2019 {drop ed ymyxin-HC (Huds on MG/ML / ymyxin 12:00: s_int 3.5-80096-3 [facility] Neomycin -HC 00 AM o_aff Health 3.5 MG/ML / 3.5-10 EST ected Care) Polymyxin B 000-1 _ear} 02200 UNT/ML Otic Solution Neomycin-Po lymyxin-HC 3.5-77613-8 Sodium Saline 07/07/ active Saline Nasal eCW3 Chloride Nasal 2019 [place] 0.65 % (H udson 0.111 [place] 12:00: [facility] MEQ/ML 0.65 % 00 AM Health Nasal [place] EST Care) Saline Nasal [place] 0.65 % duloxetine Cymbal .0 active Cymbalta 60 eCW3 60 MG ta 60 2018 {caps MG (Yee Delayed MG 12:00: ule} [facility] Release 00 AM Health Oral EST Care) Capsule [Cymbalta] Cymbalta 60 MG Omeprazole Omepra 07/07/ active Omeprazo le eCW3 40 MG zole 2019 40 MG (Yee Delayed 40 MG 12:00: [facility] Release 00 AM Health Oral EST Care) Capsule Tylenol 8 Tyleno .0 active Tylenol 8 eCW3 Hour 650 MG l 8 2018 {tabl Hour 650 MG (Yee Hour 12:00: ets_a [facility] 650 MG 00 AM s_[facility] Health EST ded} Care) Ergocalcife Vitami 1.0 active Vitamin D eCW3 rol 04527 n D 2018 {caps (Ergocalcife ( Yee UNT Oral (Ergoc 12:00: ule} rol) 18084 R iver Capsule alcife 00 AM UNIT Health Vitamin D rol) EST Care) (Ergocalcif 99399 jose g) [id number] UNIT UNIT Ergocalcife Vitami .0 active Vitamin D eCW3 rol 78706 n D 2017 {caps (Ergocalcife ( Yee UNT Oral (Ergoc 12:00: ule} rol) 58754 R iver Capsule alcife 00 AM UNIT Health Vitamin D rol) EST Care) (Ergocalcif 09083 jose g) [id number] UNIT UNIT Insurance Providers Payer name Policy type Policy ID Covered Covered democrat's Policy P deshawn / Coverage democrat ID relationship to Yuen Inf ormation type yuen [facility] MEDICAID [id number] [facility] [place]ICA[place] [id number] [place] [id number] [facility] Problems, Conditions, and Diagnoses Code Display Name Description Problem Type Effective Data Sour ce(s) Dates E78.2 Mixed hyperlipidemia Mixed Problem 09/09/2019 eCW3 ([place] hyperlipidemia 12:00:00 AM [facility] EST [facility]) Social History Code Duration Value Status Description Data Source(s ) Smoking 09/19/2019 Current Smoker completed Current Smoker eCW3 ( [facility] 12:00:00 AM [facility] Health Ca re) Vital Signs ID Date Data Source UNK Name Value Range Interpretation Code Description Data Source(s) Diastolic blood 78 mm[Hg] 78 mm[Hg] eCW3 ([facility]) Systolic blood 119 mm[Hg] 119 mm[Hg] eCW3 ([facility]) Body temperature 98.3 [degF] 98.3 [degF] eCW3 ( [facility]) Body mass index 23.41 kg/m2 23.41 kg/m2 eCW3 (H udson (BMI) [Ratio] [facility]) Body weight 112 [lb_av] 112 [lb_av] eCW3 ([facility]) Body height 58 [in_i] 58 [in_i] eCW3 ([facility]) Patient Treatment Plan of Care Planned Activity Planned Date Details Description Data Source (s) Nebulizer - 11/22/2019 12:00:00 AM eCW3 ([facility])
[2020-05-09] MEDS ORDERED: diphenhydrAMINE HCL 25 MG CAPSULE (FP) PO ONE ×2 (08:50→09:09)
[2020-05-09] MEDS ORDERED: ONDANSETRON *ODT* 4 MG TABLET SL ONE (08:51)
[2020-05-09] MEDS ORDERED: predniSONE 20 MG TABLET (UD) PO ONE (09:08)
[2020-05-09] MEDS ORDERED: ONDANSETRON *ODT* 4 MG TABLET ONE (09:09)
[2020-05-09] MEDS ORDERED: predniSONE 20 MG TABLET (UD) ONE (09:17)
[2020-05-09] MEDS ORDERED: predniSONE 10 MG TABLET (UD) ONE (09:17)
[2020-05-09] MEDS ORDERED: predniSONE 20 MG TABLET (UD) PO SCH (10:00)
--- NOTE | 2020-05-09 10:27 | PDOC ---
Documentation entered by Ronaldo Lynn SCRIBE, acting as scribe for Clinton Trotter MD. Clinton Trotter MD: This documentation has been prepared by the patriciaibe, Ronaldo Lynn SCRIBE, under my direction and personally reviewed by me in its entirety. I confirm that the documentation accurately reflects all work, treatment, procedures, and medical decision making performed by me. Attending Attestation - Resident Resident Name: ElkinAdolfo - ED Attending Attestation I have performed the following: I have examined & evaluated the patient, The case was reviewed & discussed with the resident, I agree w/resident's findings & plan, Exceptions are as noted - HPI HPI: 05/09/20 09:37 History taken via hand hide stretcher The patient is a 44 year old female with a significant past medical history of RA who presents to the emergency department for evaluation of a rash and shortness of breath that began this morning after taking her first dose of rifampin. The patient also reports nausea, myalgias, headache, and diffusely itchy across her upper body but states the SOB and nausea have resolved at this time. 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 Denies dizziness, focal weakness/numbness, throat closing. The patient denies chest/abdominal/back pain, cough, fever, chills, vomiting, and/or any symptoms. Denies any other symptoms. Allergies: NKA Social Hx: None reported Surgical Hx: right iguana hernia Specialist: Dr. Denney - Physicial Exam PE: 05/09/20 09:05 GENERAL: Awake, alert, and fully oriented, in no acute distress EYES: PERRLA, EOMI, sclera anicteric, conjunctiva clear ENT: Nares patent, oropharynx clear without exudates. Moist mucosa NECK: Normal ROM, supple, no lymphadenopathy, JVD, or masses LUNGS: Breath sounds equal, clear to auscultation bilaterally. No wheezes, and no crackles HEART: Regular rate and rhythm, normal S1 and S2, no murmurs, rubs or gallops ABDOMEN: Soft, nontender, normoactive bowel sounds. No guarding, no rebound. No masses EXTREMITIES: Normal range of motion, no edema. No clubbing or cyanosis. No cords, erythema, or tenderness NEUROLOGICAL: Normal speech, cranial nerves intact, normal gait, equal strength and sensation b/l SKIN: Warm, Dry, normal turgor, no rashes or lesions noted." - Medical Decision Making 05/09/20 10:20 44yo F presents to the ED with SOB and rash after taking first dose of rifampin Pt well appearing, mildly tachycardic on arrival but rpt HR on my evaluation 88 w/o intervention No evidence of active anaphylaxis, lungs are clear and pt denies SOB at this time Will give benadryl, prednisone, observe for 4hrs from time of initial sxs Pt advised to stop rifampin until she f/u with Dr. Denney
[2020-05-09 10:32] VITALS: BP 111/63; PULSE 62
== END 2020-05-09 11:30 | disposition home or self-care (01) ==
LOC: JER 08:18
DX: T78.40XA Allergy, unspecified, initial encounter (principal)
CPT/HCPCS: 99283-25; Q0162

== ENCOUNTER 2021-04-19 23:17 | Emergency (ER) | payer OTHER ==
[2021-04-19 23:38] VITALS: TEMP 98.3; BMI 19.9
[2021-04-20 00:25] LABS: BASO % 0.7 % (0-2.0); EOS % 1.5 % (0-4.5); HEMATOCRIT 36.5 % (32.4-45.2); HEMOGLOBIN 12.6 GM/dL (10.7-15.3); LYMPH % 43.8 % (8-40); MCH 31.2 pg (25.7-33.7); MCHC 34.4 g/dl (32.0-36.0); MEAN CELL VOLUME 90.7 fl (80-96); MEAN PLT VOLUME 7.9 fl (7.5-11.1); MONO % 9.3 % (3.8-10.2); NEUT % 44.7 % (42.8-82.8); PLATELET COUNT 251 10^3/uL (134-434); RBC 4.03 M/mm3 (3.60-5.2); RDW 14.3 % (11.6-15.6); WHITE BLOOD COUNT 8.5 K/mm3 (4.0-10.0)
[2021-04-20 00:37] LABS: CHLORIDE 109 mmol/L (98-107); SODIUM 140 mmol/L (136-145)
[2021-04-20 00:39] LABS: CALCIUM 8.7 mg/dL (8.5-10.1)
[2021-04-20 00:40] LABS: ALBUMIN 3.7 g/dl (3.4-5.0); ANION GAP 6 MMOL/L (8-16); BLOOD UREA NITROGEN 12.5 mg/dL (7-18); CO2 26 mmol/L (21-32); GLUCOSE,RANDOM 128 mg/dL (74-106); MAGNESIUM 2.4 mg/dL (1.8-2.4)
[2021-04-20 00:41] LABS: INR 1.01 (0.83-1.09); PROTHROMBIN TIME (PATIENT) 12.4 SEC (9.7-13.0)
[2021-04-20 00:43] LABS: CREATININE 0.4 mg/dL (0.55-1.3); SGOT/AST 20 U/L (15-37); SGPT/ALT 25 U/L (13-61)
[2021-04-20 00:44] LABS: ACTIVATED PTT 28.9 SECONDS (25.2-36.5); BILIRUBIN,TOTAL 0.3 mg/dL (0.2-1); TOT PROT 7.3 g/dl (6.4-8.2)
[2021-04-20 00:46] LABS: ALK PHOS 69 U/L (45-117)
[2021-04-20] MEDS ORDERED: ACETAMINOPHEN 1000 MG/100 ML VIAL (NON FORMULARY) IVPB ONE (01:18)
[2021-04-20] MEDS ORDERED: ACETAMINOPHEN INJECTION 100 ML IVPB ONE (01:27)
[2021-04-20 03:19] VITALS: BP 113/71; PULSE 64
== END 2021-04-20 04:26 | disposition home or self-care (01) ==
LOC: JER 23:17
PROC: 3E033NZ Introduction of Analgesics, Hypnotics, Sedatives into Peripheral Vein, Percutaneous Approach (ICD-10-PCS; principal; 2021-04-20)
DX: R00.2 Palpitations (principal); R07.9 Chest pain, unspecified
CPT/HCPCS: 36415; 71045-TC-FY; 80053; 82550; 83735; 84443; 84484; 84703; 85025; 85379; 85610; 85730; 93005; 93010; 99284-25; J0131

== ENCOUNTER → 2021-12-25 | Day surgery (SDC) | payer OTHER ==
[2021-12-20 14:45] VITALS: BMI 21.7
[~2021-12-25] MED LIST: BUPIVACAINE HCL/PF 0.25% (2.5MG/ML) 10 ML VIAL IJ ONE; LIDOCAINE HCL/PF 1% SDV 5ML VIAL ONE
[2021-12-25 17:49] VITALS: BP 117/79; PULSE 85; TEMP 97.2
== END | disposition home or self-care (01) ==
LOC: JASU-SURG 04:11
PROVIDERS: ATTEND Pain Medicine Pain Medicine
PROC: BR14YZZ Fluoroscopy of Cervical Facet Joint(s) using Other Contrast (ICD-10-PCS; 2021-12-25)
PROC: 3E0T3BZ Introduction of Anesthetic Agent into Peripheral Nerves and Plexi, Percutaneous Approach (ICD-10-PCS; principal; 2021-12-25 15:32)
DX: M47.812 Spondylosis without myelopathy or radiculopathy, cervical region (principal)
CPT/HCPCS: 76000-TC-FY; 81025

== ENCOUNTER 2022-07-24 21:51 | Emergency (ER) | payer OTHER ==
[2022-07-24 22:10] VITALS: BP 110/60; PULSE 81; RESP 17; TEMP 97.6; BMI 22.4
== END 2022-07-25 00:50 | disposition left against medical advice (07) ==
LOC: JER 21:51
DX: S51.801A Unspecified open wound of right forearm, initial encounter (principal); W54.0XXA Bitten by dog, initial encounter
CPT/HCPCS: 99281-25

== ENCOUNTER 2022-11-19 04:07 | Day surgery (SDC) | payer OTHER ==
[2022-11-04 10:22] VITALS: BMI 25.0
[~2022-11-19 04:07] MED LIST changes: +ACETAMINOPHEN 500 MG TABLET (FP) PO PRN; -BUPIVACAINE HCL/PF 0.25% (2.5MG/ML) 10 ML VIAL IJ ONE; -LIDOCAINE HCL/PF 1% SDV 5ML VIAL ONE
[2022-11-19] MEDS ORDERED: BUPIVACAINE HCL/PF 0.5% (5MG/ML) 10 ML VIAL ONE (07:33)
[2022-11-19] MEDS ORDERED: LIDOCAINE HCL/PF 1% SDV 5ML VIAL ONE (07:33)
[2022-11-19] MEDS ORDERED: LIDOCAINE HCL 1% PRESERVATIVE FREE - 30ML VIAL IJ ONE (11:10)
[2022-11-19] MEDS ORDERED: BUPIVACAINE HCL/PF 0.75% 10 ML VIAL NR ONE (11:14)
[2022-11-19 11:38] VITALS: PULSE 70; RESP 20; TEMP 96.7
[2022-11-19] MEDS ORDERED: ACETAMINOPHEN 500 MG TABLET (FP) PO PRN (15:15)
[2022-11-19 18:13] VITALS: BP 144/82
== END 2022-11-19 17:10 | disposition home or self-care (01) ==
LOC: JASU-SURG 04:07
PROVIDERS: ATTEND Pain Medicine Pain Medicine
PROC: 3E0T33Z Introduction of Anti-inflammatory into Peripheral Nerves and Plexi, Percutaneous Approach (ICD-10-PCS; 2022-11-19)
PROC: 3E0T3BZ Introduction of Anesthetic Agent into Peripheral Nerves and Plexi, Percutaneous Approach (ICD-10-PCS; principal; 2022-11-19 11:00)
DX: M47.812 Spondylosis without myelopathy or radiculopathy, cervical region (principal)
CPT/HCPCS: 76000-TC-FY; 81025

== ENCOUNTER 2022-12-24 04:26 | Day surgery (SDC) | payer OTHER ==
[2022-12-18 15:06] VITALS: BMI 22.2
[~2022-12-24 04:26] MED LIST changes: -ACETAMINOPHEN 500 MG TABLET (FP) PO PRN; +BUPIVACAINE HCL/PF 0.75% 10 ML VIAL NR ONE; +DEXAMETHASONE SOD PHOSPHATE 10 MG/1 ML VIAL IVPUSH ONE; +LIDOCAINE 1% P/F 10 MG/ML VIAL INF ONE; +LIDOCAINE HCL/PF 2% SDV 5ML VIAL INF ONE
[2022-12-24] MEDS ORDERED: LIDOCAINE HCL/PF 2% SDV 5ML VIAL ONE (07:15)
[2022-12-24] MEDS ORDERED: BUPIVACAINE HCL/PF 0.5% (5MG/ML) 10 ML VIAL ONE (07:15)
[2022-12-24] MEDS ORDERED: LIDOCAINE HCL/PF 1% SDV 5ML VIAL ONE (07:15)
[2022-12-24] MEDS ORDERED: BUPIVACAINE HCL/PF 0.75% 10 ML VIAL ONE (07:33)
[2022-12-24] MEDS ORDERED: DEXAMETHASONE SOD PHOSPHATE 10 MG/1 ML VIAL ONE (07:34)
[2022-12-24] MEDS ORDERED: BUPIVACAINE HCL/PF 0.75% 10 ML VIAL NR ONE (11:48)
[2022-12-24] MEDS ORDERED: LIDOCAINE 1% P/F 10 MG/ML VIAL INF ONE (11:48)
[2022-12-24] MEDS ORDERED: LIDOCAINE HCL/PF 2% SDV 5ML VIAL INF ONE (11:48)
[2022-12-24] MEDS ORDERED: DEXAMETHASONE SOD PHOSPHATE 10 MG/1 ML VIAL IVPUSH ONE (11:48)
[2022-12-24] MEDS ORDERED: ACETAMINOPHEN 500 MG TABLET (FP) PO PRN (13:05)
[2022-12-24] MEDS ORDERED: ACETAMINOPHEN 500 MG TABLET (FP) ONE (13:17)
[2022-12-24 14:31] VITALS: BP 115/66; PULSE 78; RESP 20; TEMP 98.2
== END 2022-12-24 14:35 | disposition home or self-care (01) ==
LOC: JASU-SURG 04:26
PROVIDERS: ATTEND Pain Medicine Pain Medicine
PROC: 015B3ZZ Destruction of Lumbar Nerve, Percutaneous Approach (ICD-10-PCS; principal; 2022-12-24 12:15)
DX: M47.812 Spondylosis without myelopathy or radiculopathy, cervical region (principal)
CPT/HCPCS: 76000-TC-FY; 81025; J1100

== ENCOUNTER 2023-12-07 12:54 | Day surgery (SDC) | payer OTHER ==
[2023-12-07] MEDS: FERRIC CARBOXYMALTOSE 750 MG in SODIUM CHLORIDE 250 ML IVPB ONE (13:47)
[2023-12-07 13:55] VITALS: BP 102/72; PULSE 78; RESP 18; TEMP 98.6
== END 2023-12-07 14:14 | disposition home or self-care (01) ==
LOC: FINFUSION 12:54 → FINJECTION 12:54 → FM/S 12:56 → FINJECTION 14:14
PROVIDERS: ATTEND Family Medicine
PROC: 3E033GC Introduction of Other Therapeutic Substance into Peripheral Vein, Percutaneous Approach (ICD-10-PCS; principal; 2023-12-07)
DX: D50.9 Iron deficiency anemia, unspecified (principal)
CPT/HCPCS: 96365; J1439

== ENCOUNTER 2023-12-14 13:49 | Day surgery (SDC) | payer OTHER ==
[2023-12-14] MEDS: FERRIC CARBOXYMALTOSE 750 MG in SODIUM CHLORIDE 250 ML IVPB ONE (14:31)
[2023-12-14 15:28] VITALS: BP 97/58; PULSE 66; RESP 14; TEMP 98
== END 2023-12-14 15:28 | disposition home or self-care (01) ==
LOC: FINFUSION 13:49 → FM/S 13:53 → FINFUSION 15:28
PROVIDERS: ATTEND Family Medicine
PROC: 3E033GC Introduction of Other Therapeutic Substance into Peripheral Vein, Percutaneous Approach (ICD-10-PCS; principal; 2023-12-14)
DX: D50.9 Iron deficiency anemia, unspecified (principal)
CPT/HCPCS: 81025; 96365; J1439